=== PATIENT | female | born 1985 | race Caucasian/White ===

== ENCOUNTER → 2016-07-02 | Outpatient (REF) ==
[~2016-07-02] MED LIST: AMBI10TA PO; HYDR-4274 PO; METH5TA PO; TRAZ100T4 PO
--- NOTE | 2016-07-02 14:28 | REP ---
AP LATERAL CERVICAL SPINE, FOUR VIEWS: HISTORY: Degenerative disc disease. There is no acute fracture or subluxation. The C5-6 intervertebral disc is decreased in height consistent with disc degeneration. IMPRESSION: Degenerative change as described above. Signed by Mukund Hussein MD 07/02/2016 02:52 P
--- NOTE | 2016-07-02 14:41 | REP ---
PARTIAL LUMBAR SPINE, THREE VIEWS: HISTORY: Degenerative disc disease. There is no acute fracture or subluxation. The L2-3 through L4-5 intervertebral discs are decreased in height consistent with disc degeneration. IMPRESSION: Degenerative change as described above. Signed by Mukund Hussein MD 07/02/2016 02:52 P
== END ==
LOC: M SMT 13:40
PROVIDERS: ATTEND Internal Medicine
DX: Z02.71 Encounter for disability determination (principal)